=== PATIENT | female | born 1975 | race Caucasian/White ===

== ENCOUNTER → 2019-08-09 | Outpatient (CLI) | payer BC ==
[~2019-08-09] MED LIST: FLEXERIL 1010 MG/TAB PO; MOTRIN 600600 MG/TAB PO; NAPROSYN500 MG PO; PERCOCET 325 MG1 TA2 PO; PRENATAL1 TA1 PO; STOOL SOFTENER100 M2 PO
== END ==
LOC: MC.RAD 07-20 17:00
DX: Z12.31 Encounter for screening mammogram for malignant neoplasm of breast (principal)

== ENCOUNTER 2022-01-01 10:03 | Day surgery (SDC) | payer BC ==
[~2022-01-01] VITALS: Ht 171.4 cm; Wt 30.8 kg
[2022-01-01 10:36] VITALS: BP 118/74; PULSE 54; TEMP 97
[2022-01-01] MEDS ORDERED: IMITREX50 MG PO (10:41)
[2022-01-01] MEDS ORDERED: ADVIL200 MG PO (10:42)
[2022-01-01] MEDS ORDERED: PROBIOTIC BLEN1 EACH PO (10:42)
[2022-01-01] MEDS ORDERED: COMPLETE MULTI1 TAB PO (10:42)
[2022-01-01] MEDS ORDERED: MAGNESIUM ELEM300 MG PO (10:44)
[2022-01-01] MEDS ORDERED: BIOTIN10000 MC1 PO (10:45)
[2022-01-01 11:45] VITALS: BP 105/71; PULSE 48; TEMP 97.1
--- NOTE | 2022-01-01 11:45 | NUR ---
PATIENT ARRIVES TO ROOM 5 VIA CART. ASSIST X 2 TO CHAIR. AT BEDSIDE. DOCTOR ALSO AT BEDSIDE. WILL CONTINUE TO MONITOR.
[2022-01-01 12:00] VITALS: BP 100/60; PULSE 43
--- NOTE | 2022-01-01 12:00 | NUR ---
PATIENT IS DOING WELL. SHE TOLERATED GRAPE JUICE WITHOUT NAUSEA. AT BEDSIDE. VITAL SIGNS WNL. WILL CONTINUE TO MONITOR.
[2022-01-01 12:15] VITALS: BP 102/73; PULSE 44
--- NOTE | 2022-01-01 12:15 | NUR ---
PATIENT IS READY FOR DISCHARGE. LAST SET OF VITALS WNL. DISCHARGE INSTRUCTIONS REVIEWED. WILL DC AFTER SHE IS DRESSED.
== END 2022-01-01 12:27 | disposition home or self-care (01) ==
LOC: SDCO 10:03
DX: Z12.11 Encounter for screening for malignant neoplasm of colon (principal); K64.1 Second degree hemorrhoids
CPT/HCPCS: J2405; J2704; J3010; J7120